=== PATIENT | female | born 1980 | race Caucasian/White ===

== ENCOUNTER 2017-11-18 11:55 | Emergency (ER) | payer SELFPAY ==
[2017-11-18 14:34] LABS: Absolute Lymphocytes (CBC) 1.9 K/uL (0.7-4.9); Absolute Monocytes 0.4 K/uL (0.1-1.3); Absolute Neutrophil 4.3 K/uL (1.8-8.0); Basophils % 0.4 % (0-1.3); Eosinophils % 1.9 % (0-4.4); Hematocrit 39.3 % (36.0-45.0); Lymphocytes % 28.1 % (15.3-44.8); MCH 31.7 pg (27.0-35.0); MCV 94.2 fL (80-100); Monocytes % 6.4 % (3.3-12.3); RBC Red Blood Cell Count 4.17 M/uL (3.86-4.86)
[2017-11-18 14:40] LABS: Glucose Level 89 mg/dL (65-120)
[2017-11-18] MEDS ORDERED: NA CHLORIDE 0.9% 1,000 ML ONE (14:40)
[2017-11-18] MEDS ORDERED: CLINDAMYCIN 600MG/D5W 600 MG/50 ML BAG IV ONE (14:40)
[2017-11-18] MEDS ORDERED: CIPROFLOXACIN 400mg IV 400 MG/200 ML BAG IV ONE (14:40)
[2017-11-18 14:41] LABS: BUN Blood Urea Nitrogen 11 mg/dL (6-20); Glomerular Filtration Rate > 90 mL/min (=/>90)
[2017-11-18 14:43] LABS: Bicarbonate 25 mEq/L (21-31); Potassium 4.1 mEq/L (3.6-5.0); Sodium Level 134 mEq/L (135-145)
[2017-11-18] MEDS ORDERED: HYDROCODONE/APAP 7.5/325 MG TAB ONE (15:05)
--- NOTE | 2017-11-18 15:05 | ER ---
Nurse's Notes [facility] Name: Luli Fields Age: 37 yrs Sex: Female : 1980 Arrival Date: 11/18/2017 Time: 11:57 Bed 24 Private MD: Diagnosis: Cutaneous abscess of right hand;Other local infections of skin and subcutaneous tissue;Other synovitis and tenosynovitis, right hand Presentation: 11/18 12:10 Presenting complaint: Patient states: Cut finger while fishing 1 week ago, c/o hb worsening pain and and swelling x 2 days. Seen at urgent care for same s/s, on doxycycline Day 3. Transition of care: patient was not received from another setting of care. Onset of symptoms is unknown. Care prior to arrival: None. 12:10 Method Of Arrival: Ambulatory hb 12:10 Acuity: DANIELLE 3 hb Triage Assessment: 12:15 General: Appears in no apparent distress. uncomfortable, Behavior is cooperative, hb anxious. Pain: Pain currently is 10 out of 10 on a pain scale. Neuro: Level of Consciousness is awake, alert, obeys commands, Oriented to person, place, time, situation. Cardiovascular: Capillary refill < 3 seconds Patient's skin is warm and dry. Respiratory: Airway is patent Trachea midline Respiratory effort is even, unlabored, Respiratory pattern is regular, symmetrical. 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 - Social history:: Smoking status: Patient uses tobacco products, smokes one-half pack cigarettes per day. Screenin:40 Abuse screen: Denies threats or abuse. Denies injuries from another. Nutritional ss screening: No deficits noted. Tuberculosis screening: Never had TB. Fall Risk None identified. Assessment: 13:15 General: Appears uncomfortable, Behavior is calm, cooperative. Pain: Complains of pain ss in dorsal aspect of distal phalanx of right index finger, dorsal aspect of middle phalanx of right index finger, dorsal aspect of proximal phalanx of right index finger, palmar aspect of distal phalanx of right index finger, palmar aspect of middle phalanx of right index finger and palmar aspect of proxima; phalanx of right index finger Pain currently is 10. out of 10 on a pain scale. Quality of pain is described as tender, throbbing, Pain began 1 week ago, is getting much worse Is continuous. Neuro: Level of Consciousness is awake, alert, obeys commands, Oriented to person, place, time, situation. Cardiovascular: Capillary refill < 3 seconds is brisk in bilateral fingers. Respiratory: Airway is patent Respiratory effort is even, unlabored, Respiratory pattern is regular, symmetrical, Breath sounds are clear in left upper lobe and right middle lobe Breath sounds with wheezes in left upper lobe. GI: No signs and/or symptoms were reported involving the gastrointestinal system. EENT: Oral mucosa is moist. Throat is clear. Derm: Skin is intact, is healthy with good turgor, Skin is dry, Skin is pink, warm \T\ dry. normal. Musculoskeletal: Circulation, motion, and sensation intact. Capillary refill < 3 seconds, is brisk, in bilateral fingers. Range of motion: intact in all extremities, Swelling present in dorsal aspect of distal phalanx of right index finger, dorsal aspect of middle phalanx of right index finger, dorsal aspect of proximal phalanx of right index finger, palmar aspect of distal phalanx of right index finger, palmar aspect of middle phalanx of right index finger and palmar aspect of proxima; phalanx of right index finger. 15:00 General: Report called to ARSENIO Davis at [facility] ER. Awaiting for EMS transportation. . 16:03 Reassessment: [facility] arrived, report given. Pt. being transported on rk2 stretcher with IV fluids and antibiotics infusing. Vital Signs: 12:15 BP 156 / 91; Pulse 111; Resp 16; Temp 98.7(O); Pulse Ox 99% on R/A; Pain 10/10; hb 15:47 BP 154 / 80; Pulse 93; Resp 18; Temp 98.1(O); Pulse Ox 100% on R/A; dh3 ED Course: 11:57 Patient arrived in ED. as 12:14 Triage completed. hb 12:15 Arm band placed on right wrist. hb 12:16 Patient placed in waiting room, Patient notified of wait time. hb 13:18 [facility]C [facility] kb 13:18 Hudson Dela Cruz MD is Attending Physician. kb 13:44 Kathryn Olmstead, ARSENIO is Primary Nurse. ss 14:05 Inserted saline lock: 22 gauge in left hand, using aseptic technique. Blood collected. ss 14:24 First set of blood cultures drawn by ED staff, Second set of blood cultures drawn by 3 venipuncture 23G to right hand by va. 15:00 Patient has correct armband on for positive identification. Bed in low position. Call ss light in reach. 15:16 Hand Right 3 View In Process Unspecified. EDMS 15:43 No provider procedures requiring assistance completed. Patient transferred, IV remains ss in place. Administered Medications: 14:27 Drug: Clindamycin 600 mg Route: IVPB; Infused Over: 30 mins; Site: left hand; ss 15:01 Follow up: Response: No adverse reaction; IV Status: Completed infusion ss 15:10 Follow up: Response: No adverse reaction; IV Status: Completed infusion rk2 14:28 Drug: NS 0.9% 1000 ml Route: IV; Rate: 1000 ml; Site: left hand; ss 16:11 Follow up: Response: still infusing; still infusing rk2 14:54 Drug: [place] (7.5 mg-325 mg) 1 tabs Route: PO; ss 16:09 Follow up: Response: No adverse reaction; Pain is decreased rk2 15:02 Drug: Cipro 400 mg Volume: 200 ml; Route: IVPB; Infused Over: 60 mins; Site: right ss forearm; 16:10 Follow up: Still infusing rk2 Intake: Outcome: 15:04 ER care complete, transfer ordered by . kb 15:43 Instructed on the need for transfer. ss 16:04 Transferred to [facility]. rk2 16:04 Condition: good 16:08 Patient left the ED. rk2 Signatures: Dispatcher [employer] EDNJ Shelly Burch FNP-C WEB SOFTWARE ENGINEER-CkWanda Ellis as Kathryn Olmstead, RN RN Meg Jurado RN RN hb Herrera, Deanna formerly [facility] Emily Matute RN RN rk2
--- NOTE | 2017-11-18 15:05 | EDPHYS ---
Physician Documentation [facility] Name: Luli Fields Age: 37 yrs Sex: Female : 1980 Arrival Date: 11/18/2017 Time: 11:57 Bed 24 Private MD: ED Physician Hudson Dela Cruz HPI: 11/18 13:27 This 37 yrs old Female presents to ER via Ambulatory with complaints of kb Finger Swelling/Redness. 13:27 the patient presents with a swollen area of the Right index finger. Description: kb erythematous, swollen, warm. Onset: The symptoms/episode began/occurred 3 day(s) ago. Possible cause(s): [place] beach [place]. Associated signs and symptoms: Pertinent positives: erythema, swelling, Pertinent negatives: discharge, drainage, foreign body sensation, fever, headache, nausea, shortness of breath, vomiting. Modifying factors: the symptoms are alleviated by nothing, the symptoms are aggravated by pressure, squeezing the lesion and expressing the contents, touching. Severity of symptoms: At their worst the symptoms were moderate, in the emergency department the symptoms are unchanged. The patient has not experienced similar symptoms in the past. The patient has been recently seen by a physician: the ER physician, out of Town, in [place] [facility], 2 day(s) ago, with similar presenting complaints. 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 - Social history:: Smoking status: Patient uses tobacco products, smokes one-half pack cigarettes per day. ROS: 13:26 Constitutional: Negative for fever, chills, and weight loss, Cardiovascular: Negative kb for chest pain, palpitations, and edema, Respiratory: Negative for shortness of breath, cough, wheezing, and pleuritic chest pain, Abdomen/GI: Negative for abdominal pain, nausea, vomiting, diarrhea, and constipation, Neuro: Negative for headache, weakness, numbness, tingling, and seizure. 13:26 Skin: Positive for cellulitis, erythema, swelling, of the Right index finger. Exam: 13:26 Constitutional: This is a well developed, well nourished patient who is awake, alert, kb and in no acute distress. Head/Face: Normocephalic, atraumatic. Chest/axilla: Normal chest wall appearance and motion. Nontender with no deformity. No lesions are appreciated. Cardiovascular: Regular rate and rhythm with a normal S1 and S2. No gallops, murmurs, or rubs. Normal PMI, no JVD. No pulse deficits. Respiratory: Lungs have equal breath sounds bilaterally, clear to auscultation and percussion. No rales, rhonchi or wheezes noted. No increased work of breathing, no retractions or nasal flaring. Abdomen/GI: Soft, non-tender, with normal bowel sounds. No distension or tympany. No guarding or rebound. No evidence of tenderness throughout. Neuro: Awake and alert, GCS 15, oriented to person, place, time, and situation. Cranial nerves II-XII grossly intact. Motor strength 5/5 in all extremities. Sensory grossly intact. Cerebellar exam normal. Normal gait. 13:26 Skin: cellulitis, that is moderate, on the Right index finger. Vital Signs: 12:15 BP 156 / 91; Pulse 111; Resp 16; Temp 98.7(O); Pulse Ox 99% on R/A; Pain 10/10; hb 15:47 BP 154 / 80; Pulse 93; Resp 18; Temp 98.1(O); Pulse Ox 100% on R/A; dh3 MDM: 13:18 Patient medically screened. kb 13:26 Data reviewed: vital signs, nurses notes. Data interpreted: Pulse oximetry: on room air kb is 99 %. Interpretation: normal. 15:02 Counseling: I had a detailed discussion with the patient and/or guardian regarding: the kb historical points, exam findings, and any diagnostic results supporting the discharge/admit diagnosis, lab results, radiology results, the need to transfer to another facility, for higher level of care, [facility] does not immediately have the required specialist. 11/18 14:21 Order name: Basic Metabolic Panel; Complete Time: 14:45 [facility] 11/18 14:21 Order name: CBC with Automated Diff; Complete Time: 14:39 [facility] 11/18 14:21 Order name: Blood Culture [facility] 11/18 14:35 Order name: Blood Culture [facility] 11/18 15:01 Order name: Hand Right 3 View; Complete Time: 15:30 [facility] 11/18 13:23 Order name: IV Start; Complete Time: 14:15 kb Administered Medications: 14:27 Drug: Clindamycin 600 mg Route: IVPB; Infused Over: 30 mins; Site: left hand; ss 15:01 Follow up: Response: No adverse reaction; IV Status: Completed infusion ss 15:10 Follow up: Response: No adverse reaction; IV Status: Completed infusion rk2 14:28 Drug: NS 0.9% 1000 ml Route: IV; Rate: 1000 ml; Site: left hand; ss 16:11 Follow up: Response: still infusing; still infusing rk2 14:54 Drug: [place] (7.5 mg-325 mg) 1 tabs Route: PO; ss 16:09 Follow up: Response: No adverse reaction; Pain is decreased rk2 15:02 Drug: Cipro 400 mg Volume: 200 ml; Route: IVPB; Infused Over: 60 mins; Site: right ss forearm; 16:10 Follow up: Still infusing rk2 Disposition: 11/19 06:49 Co-signature as Attending Physician, Hudson Dela Cruz MD I agree with the assessment and jono plan of care. Disposition: 11/18/17 15:04 Transfer ordered to [facility]. Diagnosis are Cutaneous abscess of right hand, Other local infections of skin and subcutaneous tissue, Other synovitis and tenosynovitis, right hand. - Reason for transfer: Higher level of care. - Accepting physician is Dr Larissa Puente. - Condition is Stable. - Problem is new. - Symptoms are unchanged. Signatures: Dispatcher [employer] [facility] Shelly Burch, MANAGER CUSTOM-C ERIN-Hudosn Palomo MD MD cha Smirch, Shelby, RN RN ss Baxter, Heather, RN RN hb Kidder, Rhonda, RN RN rk2 Corrections: (The following items were deleted from the chart) 11/18 13:48 13:26 Skin: cellulitis, that is moderate, on the left index finger, kb kb 13:48 13:26 Skin: Positive for cellulitis, erythema, swelling, of the left index finger, kb kb 13:48 13:27 the patient presents with a swollen area of the left index finger, kb kb 14:38 14:35 Blood Culture ordered. [facility] 16[facility] 16:03 Hand Left 3 View+RAD.RAD.BRZ ordered. EDMS EDMS
--- NOTE | 2017-11-18 15:29 | RAD REPORT ---
EXAM DESCRIPTION: RAD - Hand Right 3 View - 11/18/2017 3:16 pm CLINICAL HISTORY: Right hand pain status post injury FINDINGS: No fracture or dislocation is seen. No bony destructive lesion is noted
== END 2017-11-18 16:08 | disposition short-term general hospital (02) ==
LOC: ER 11:55
DX: L02.511 Cutaneous abscess of right hand (principal); L08.89 Other specified local infections of the skin and subcutaneous tissue; M65.841 Other synovitis and tenosynovitis, right hand; F17.210 Nicotine dependence, cigarettes, uncomplicated; Z88.8 Allergy status to other drugs, medicaments and biological substances
CPT/HCPCS: 36415; 80048; 85025; 87040; 96365; 96375; 99285; J0744; J7030